=== PATIENT | female | born 1990 | race Caucasian/White ===

== ENCOUNTER 2018-04-27 10:24 | Emergency (ER) | payer MEDICAID ==
[~2018-04-27] VITALS: Ht 157.5 cm; Wt 56.0 kg
[~2018-04-27 10:24] MED LIST: ACET500C5 PO; DOCU-144 PO; IBUP-1542 PO; LIDO30CR2 TP
[2018-04-27 10:27] VITALS: BP 137/58; PULSE 89; RESP 18; Ht 157.5 cm; Wt 56.0 kg
--- NOTE | 2018-04-27 12:08 | ERD ---
ER Documentation Chief Complaint Chief Complaint upper back pain with inspiration x 1 year HPI 27-year-old female, previously healthy, presents to the emergency department, complaining of intermittent episodes of upper back pain for a year. Dull, 05/19. No history of trauma, she denies any distal weakness, numbness or tingling. No fever, no chills, no cough. The patient is requesting chest x- rays. ROS All systems reviewed and are negative except as per history of present illness. Medications Home Meds Active Scripts Baclofen* (Baclofen*) 10 Mg Tablet, 10 MG PO TID for 7 Days, TAB Prov:JAZMYN WILSON MD 04/27/18 Ibuprofen* (Motrin*) 400 Mg Tab, 400 MG PO Q8, #30 TAB Prov:JAZMYN WILSON MD 04/27/18 Lidocaine (Lmx 4) 30 Gm Cream.gm., 0.5 INCH TP BID, #1 TUB Prov:VENKATA BARRON PA-C 01/31/16 Docusate Sodium* (Colace*) 100 Mg Capsule, 100 MG PO TID, #30 CAP Prov:VENKATA BARRON PA-C 01/31/16 Ibuprofen* (Ibuprofen*) 600 Mg Tablet, 600 MG PO Q6, #20 TAB 0 Refills Prov:CARMEN SOLOMON MD 12/11/15 Acetaminophen* (Tylophen*) 500 Mg Capsule, 1 CAP PO Q6H PRN for PAIN AND OR ELEVATED TEMP, #20 CAP Prov:CHRISTINA MALHOTRA NP 05/06/15 Allergies Allergies: Coded Allergies: No Known Drug Allergies (Verified Allergy, Mild, 07/29/11) PMhx/Soc History of Surgery: No Anesthesia Reaction: No Hx Neurological Disorder: No Hx Respiratory Disorders: No Hx Cardiac Disorders: No Hx Psychiatric Problems: No Hx Miscellaneous Medical Probl: No Hx Alcohol Use: No Hx Substance Use: No Hx Tobacco Use: No Smoking Status: Never smoker FmHx Family History: No diabetes, No coronary disease Physical Exam Vitals Vital Signs Date Temp Pulse Resp B/P (MAP) Pulse Ox O2 O2 Flow FiO2 Time Delivery Rate 04/27/18 98.1 89 18 137/58 99 10:27 (84) Physical Exam Const: No acute distress Head: Atraumatic Eyes: Normal Conjunctiva ENT: Normal External Ears, Nose and Mouth. Neck: Full range of motion. No meningismus. Resp: Clear to auscultation bilaterally Cardio: Regular rate and rhythm, no murmurs Abd: Soft, non tender, non distended. Normal bowel sounds Skin: No petechiae or rashes Back: Normal inspection, no midline or flank tenderness, bilateral upper thoracic back spasm. Normal range of motion. Ext: No cyanosis, or edema Neur: Awake and alert Psych: Normal Mood and Affect Results 24 hrs Laboratory Tests Test 04/27/18 11:54 POC Beta HCG, Qualitative NEGATIVE Radiology Main Line: [phone] DIAGNOSTIC IMAGING REPORT Patient: GERALD GAINES : 1990 Age: 27 Sex: F MR #: [id number] DOS: 04/27/18 1142 Ordering MD: JAZMYN WILSON MD Location: [facility] Room/Bed: PROCEDURE: XR Chest. CLINICAL INDICATION: Shortness of breath TECHNIQUE: PA and lateral of the chest was obtained COMPARISON: No priors for comparison FINDINGS: The trachea is midline. The cardiac silhouette and pulmonary vascularity are within normal limits. The lungs are clear. The costophrenic angles are sharp. IMPRESSION: 1. No evidence of acute cardiopulmonary disease. RPTAT: AAPP Physician Federico Date Time Electronically viewed and signed by Physician Federico on 04/27/2018 12:32 JL/ CC: JAZMYN WILSON MD [id number] Procedures/MDM Differential diagnosis include but not limited to: sprain/strain, herniated disk, pneumonia. Neurovascular exam grossly intact. no clinical findings suggestive of acute infectious process, no acute deformity, no edema, no rashes. Physical examination and clinical presentation consistent most likely with acute on chronic upper back pain with muscle spasm. Results and clinical impression discussed with the patient who agrees with management. The patient is stable to be treated outpatient and will be discharged home with recommendations and close monitoring The patient was instructed to follow up with the primary care provider in the next 48h. If symptoms persist, worsen or new symptoms develop, then patient should return to the ED immediately. Instructions explained and given to patient with acknowledgment and demonstrated understanding. Disclaimer: Inadvertent spelling and grammatical errors are likely due to EHR/dictation software use and do not reflect on the overall quality of patient care. Also, please note that the electronic time recorded on this note does not necessarily reflect the actual time of the patient encounter. Departure Diagnosis: Primary Impression: Chronic thoracic back pain Additional Impression: Muscle spasm Condition: Stable Additional Instructions: Muchas rafi por [facility] para victoria servicio. Esperamos que en victoria visita a la alicia de emergencia victoria problema medico haya sido solucionado y que se sienta mucho mejor. Para estar seguros que victoria mejoria sigue en proceso, le pedimos el favor de hacer whitney bal de seguimiento medico con victoria doctor primario en los proximos 2-4 carvajal. Lleve con usted estos documentos y las medicinas recetadas. Si scottie sintomas empeoran, NO SE ESPERE, por favor regrese a alicia de emergencia INMEDIATAMENTE. En yaron que usted no tenga un mdico de atencin primaria: Llame al mdico o clnica comunitaria de referencia que aparece abajo lusi las horas de consultorio para hacer whitney bal para que le vean. CLINICAS: [facility] [phone] [facility] [phone] [facility] [phone] [address] [facility] [phone] [facility] [phone] [address] [facility]. [phone] [address] JACINTO MCCORDRON,JAZMYN MD Apr 27, 2018 12:07
[2018-04-27] MEDS ORDERED: IBUP-1561 PO (12:09)
[2018-04-27] MEDS ORDERED: BACL10TA PO (12:09)
== END 2018-04-27 13:10 | disposition home or self-care (01) ==
LOC: FTE 10:24
DX: M54.6 Pain in thoracic spine (principal); M62.830 Muscle spasm of back
CPT/HCPCS: 71046; 81025; Z7502